=== PATIENT | female | born 1970 | race Native Hawaiian/Other Pacific Islander ===

== ENCOUNTER 2021-08-17 13:43 | Emergency (ER) | payer OTHER ==
[~2021-08-17] VITALS: Ht 162.6 cm; Wt 72.6 kg
[2021-08-17 13:48] VITALS: TEMP 98.7
[2021-08-17 14:41] VITALS: BP 156/88
== END 2021-08-17 14:42 | disposition home or self-care (01) ==
LOC: ED 13:43
DX: L02.212 Cutaneous abscess of back [any part, except buttock and flank] (principal)
CPT/HCPCS: 96372; 99283; J0696; J1885; J2405